=== PATIENT | male | born 1980 | race Caucasian/White ===

== ENCOUNTER 2016-06-19 22:49 | Emergency (ER) | payer SELFPAY ==
[2016-06-19 23:36] LABS: BASOPHILS 0.2 % (0.0-2.0); EOSINOPHILS 2.2 % (0-7); HEMATOCRIT 34.2 % (42.0-54.0); HEMOGLOBIN 11.4 g/dL (13.5-17.5); IMMATURE GRANULOCYTES 0.2 % (0-5); LYMPHOCYTES 18.7 % (15-50); MCH 29.8 pg (26.0-34.0); MCHC 33.3 g/dL (31.0-37.0); MCV 89.5 fL (80.0-100.0); MEAN PLATELET VOLUME 9.3 fL (7.4-10.4); MONOCYTES 6.1 % (2-11); NEUTROPHILS 72.6 % (40-80); RBC 3.82 10x6/uL (4.20-6.10); RDW 12.6 % (11.5-14.5); WBC 9.3 10x3/uL (4.8-10.8)
[2016-06-19 23:39] LABS: PLATELET COUNT 410 10x3/uL (130-400)
[2016-06-19 23:48] LABS: ALBUMIN 3.2 g/dL (3.4-5.0); ALKALINE PHOSPHATASE 66 U/L (46-116); ALT (SGPT) 29 U/L (10-68); CALC OSMOLALITY 279 mosm/kg (275-300); CALCIUM 8.7 mg/dL (8.5-10.1); CARBON DIOXIDE 34.3 mmol/L (21.0-32.0); CHLORIDE - SERUM 98 mmol/L (98-107); CREATININE - SERUM 0.9 mg/dL (0.6-1.3); GLUCOSE 118 mg/dL (74-106); MAGNESIUM - SERUM 2.5 mg/dL (1.8-2.4); POTASSIUM - SERUM 3.6 mmol/L (3.5-5.1); PROTEIN - SERUM 7.9 g/dL (6.4-8.2); SODIUM 140 mmol/L (136-145); UREA NITROGEN 12 mg/dL (7-18); eGFR NON AFRICAN AMERICAN > 90 mL/min (90-120)
[2016-06-20 00:31] LABS: APPEARANCE CLEAR (CLEAR); BILIRUBIN NEGATIVE (NEGATIVE); COLOR YELLOW (YELLOW); GLUCOSE NEGATIVE (NEGATIVE); KETONE NEGATIVE (NEGATIVE); LEUKOCYTE ESTERASE NEGATIVE (NEGATIVE); NITRITE NEGATIVE (NEGATIVE); PROTEIN NEGATIVE (NEGATIVE); UROBILINOGEN NORMAL (NORMAL)
[2016-06-20 00:37] LABS: UDS - AMPHET POSITIVE QUAL (NEGATIVE); UDS - BARB NEGATIVE QUAL (NEGATIVE); UDS - BENZO POSITIVE QUAL (NEGATIVE); UDS - COCAINE NEGATIVE QUAL (NEGATIVE); UDS - METH NEGATIVE QUAL (NEGATIVE); UDS - OPIATE NEGATIVE QUAL (NEGATIVE); UDS - PCP NEGATIVE QUAL (NEGATIVE); UDS - THC POSITIVE QUAL (NEGATIVE)
== END 2016-06-20 00:32 | disposition home or self-care (01) ==
LOC: D.ER 22:49
PROVIDERS: Emergency Medicine
DX: R60.9 Edema, unspecified (principal); L03.115 Cellulitis of right lower limb; D64.9 Anemia, unspecified; F17.200 Nicotine dependence, unspecified, uncomplicated

== ENCOUNTER 2017-12-14 23:19 | Emergency (ER) | payer SELFPAY ==
[~2017-12-14] VITALS: Ht 188 cm; Wt 113.6 kg
[2017-12-14 23:20] VITALS: Ht 188 cm; Wt 113.6 kg
[2017-12-15] MEDS ORDERED: ULTRAM50 MG PO (01:59)
[2017-12-15 02:48] VITALS: BP 118/78
[2017-12-15] MEDS ORDERED: TORADOL10 MG PO (21:08)
== END 2017-12-15 02:49 | disposition home or self-care (01) ==
LOC: D.ER 23:19
DX: S01.81XA Laceration without foreign body of other part of head, initial encounter (principal); S05.41XA Penetrating wound of orbit with or without foreign body, right eye, initial encounter; S01.511A Laceration without foreign body of lip, initial encounter; W18.09XA Striking against other object with subsequent fall, initial encounter; Y93.89 Activity, other specified; Y92.010 Kitchen of single-family (private) house as the place of occurrence of the external cause; S00.83XA Contusion of other part of head, initial encounter; S43.402A Unspecified sprain of left shoulder joint, initial encounter; M25.512 Pain in left shoulder; F17.200 Nicotine dependence, unspecified, uncomplicated

== ENCOUNTER 2017-12-15 18:18 | Emergency (ER) | payer SELFPAY ==
[~2017-12-15] VITALS: Ht 188 cm; Wt 113.6 kg
[~2017-12-15 18:18] MED LIST: ULTRAM50 MG PO
[2017-12-15 18:31] VITALS: Ht 188 cm; Wt 113.6 kg
[2017-12-15] MEDS ORDERED: TORADOL10 MG PO (21:08)
[2017-12-15 21:28] VITALS: BP 122/79
== END 2017-12-15 21:28 | disposition home or self-care (01) ==
LOC: D.ER 18:18
DX: F07.81 Postconcussional syndrome (principal); F17.200 Nicotine dependence, unspecified, uncomplicated

== ENCOUNTER 2017-12-16 07:55 | Emergency (ER) | payer SELFPAY ==
[~2017-12-16] VITALS: Ht 188 cm; Wt 113.6 kg
[~2017-12-16 07:55] MED LIST changes: +TORADOL10 MG PO
[2017-12-16 07:59] VITALS: Ht 188 cm; Wt 113.6 kg
[2017-12-16 09:59] VITALS: BP 114/74
== END 2017-12-16 09:59 | disposition home or self-care (01) ==
LOC: D.ER 07:55
DX: F07.81 Postconcussional syndrome (principal); R42 Dizziness and giddiness; F17.200 Nicotine dependence, unspecified, uncomplicated